=== PATIENT | female | born 1960 | race Caucasian/White ===

== ENCOUNTER 2016-08-12 17:22 | Emergency (ER) | payer BC, OTHER ==
--- NOTE | 2016-08-12 17:59 | UC ---
UC General HPI - HPI Summary HPI Summary: Patient placed a tampon at 6am. has not been able to retrieve it. no pain. - History of Current Complaint Chief Complaint: UCGU Stated Complaint: PERSONAL Time Seen by Provider: 08/12/16 17:32 Hx Obtained From: Patient Onset/Duration: Sudden Onset, Lasting Hours Timing: Constant Onset Severity: Mild Current Severity: Mild Pain Intensity: 0 - Allergy/Home Medications Allergies/Adverse Reactions: Allergies Allergy/AdvReac Type Severity Reaction Status Date / Time No Known Allergies Allergy Verified 08/12/16 17:25 Home Medications: Home Medications Aspirin EC Low Dose* [Ecotrin EC Low Dose*] 81 mg PO DAILY 08/12/16 [History Confirmed 08/12/16] Atorvastatin* [Lipitor*] 40 mg PO DAILY 08/12/16 [History Confirmed 08/12/16] Meloxicam(NF) [Mobic(NF)] 7.5 mg PO DAILY PRN 08/12/16 [History Confirmed ] metFORMIN* [Glucophage*] 500 mg PO BID 08/12/16 [History Confirmed 08/12/16] PMH/Surg Hx/FS Hx/Imm Hx Previously Healthy: Yes Endocrine History Of: Reports: Diabetes - Surgical History Surgical History: Yes Surgery Procedure, Year, and Place: D&C x3 - Family History Known Family History: Negative: Cardiac Disease, Hypertension - Social History Alcohol Use: Rare Substance Use Type: None Smoking Status (MU): Never Smoked Tobacco Review of Systems Constitutional: Negative Skin: Negative Eyes: Negative ENT: Negative Respiratory: Negative Cardiovascular: Negative Gastrointestinal: Negative Genitourinary: Other - FB Motor: Negative Neurovascular: Negative Musculoskeletal: Negative Neurological: Negative Psychological: Negative All Other Systems Reviewed And Are Negative: Yes Physical Exam Triage Information Reviewed: Yes Appearance: Well-Appearing, Well-Nourished, Pain Distress Vital Signs: Initial Vital Signs Temp 99.1 F 08/12/16 17:29 Pulse 68 08/12/16 17:29 Resp 16 08/12/16 17:29 BP 127/74 08/12/16 17:29 Pulse Ox 100 08/12/16 17:29 Eye Exam: Normal Eyes: Positive: Conjunctiva Clear ENT Exam: Normal ENT: Positive: Normal ENT inspection, Pharynx normal, TMs normal Dental Exam: Normal Neck exam: Normal Neck: Positive: Supple, Nontender, No Lymphadenopathy Respiratory Exam: Normal Respiratory: Positive: Chest non-tender, Lungs clear, Normal breath sounds Cardiovascular Exam: Normal Cardiovascular: Positive: RRR, No Murmur, Pulses Normal Abdominal Exam: Normal Abdomen Description: Positive: Nontender, No Organomegaly, Soft, Other: - pelvic exam revealed no FB, vaginal bleeding from monthly cycle. no unusal drainage or odor. patient was pain free during exam Bowel Sounds: Positive: Present Musculoskeletal Exam: Normal Musculoskeletal: Positive: Strength Intact, ROM Intact, No Edema Neurological Exam: Normal Neurological: Positive: Alert, Muscle Tone Normal Psychological Exam: Normal Skin Exam: Normal Course/Dx - Course Course Of Treatment: history obtained, exam performed, pelvic exam completed. no further treatment needed. - Differential Dx - Multi-Symptom Provider Diagnoses: normal menstration Discharge - Discharge Plan Condition: Stable Disposition: HOME Additional Instructions: During your exam, I did not find any tampon. everything looks normal at this time. i fyou develope any additional pain, unusal discharge, fever. follow up with your [employer].
[2016-08-12 18:09] VITALS: BP 127/74
== END 2016-08-12 18:19 | disposition home or self-care (01) ==
LOC: UCCORT 17:22
DX: Z03.89 Encounter for observation for other suspected diseases and conditions ruled out (principal); E11.9 Type 2 diabetes mellitus without complications; Z79.84 Long term (current) use of oral hypoglycemic drugs
CPT/HCPCS: 99212; G0463

== ENCOUNTER 2017-05-29 08:39 | Emergency (ER) | payer BC, OTHER ==
[2017-05-29 08:55] VITALS: BP 126/71
[2017-05-29] MEDS ORDERED: Ibuprofen TAB* 600 MG PO ONE (09:25)
--- NOTE | 2017-05-29 09:25 | UC ---
Skin Complaint HPI - HPI Summary HPI Summary: BOIL RIGHT UPPER EYELID X 3 DAYS + SWELLING, REDNESS , TENDER NO FEVER , NO CHILLS - History of Current Complaint Chief Complaint: UCSkin Time Seen by Provider: 05/29/17 09:17 Stated Complaint: RIGHT EYE COMPLAINT Hx Obtained From: Patient Hx Last Menstrual Period: 08/12/16 ?: No Onset/Duration: Gradual Onset, Lasting Days - 3, Still Present Timing: Constant Onset Severity: Moderate Current Severity: Moderate Location: Other - RIGHT UPPER EYELID Character: Swelling, Pain, Redness, Painful Aggravating Factor(s): Touch Alleviating Factor(s): Nothing Associated Signs & Symptoms: Positive: Tenderness. Negative: Fever, Chills - Allergy/Home Medications Allergies/Adverse Reactions: Allergies Allergy/AdvReac Type Severity Reaction Status Date / Time No Known Allergies Allergy Verified 05/29/17 08:48 Home Medications: Home Medications Fluticasone NASAL * [Flonase *] 2 spray BOTH NARES DAILY 05/29/17 [History Confirmed 05/29/17] Review of Systems Constitutional: Negative Eyes: Negative ENT: Negative Respiratory: Negative Cardiovascular: Negative Is Patient Immunocompromised?: No All Other Systems Reviewed And Are Negative: Yes PMH/Surg Hx/FS Hx/Imm Hx Endocrine History: Diabetes - Surgical History Surgical History: Yes Surgery Procedure, Year, and Place: D&C x3 - Family History Known Family History: Negative: Cardiac Disease, Hypertension - Social History Alcohol Use: Occasionally Substance Use Type: None Smoking Status (MU): Never Smoked Tobacco Physical Exam Triage Information Reviewed: Yes Appearance: Well-Appearing, No Pain Distress, Well-Nourished Vital Signs: Initial Vital Signs Temp 99.3 F 05/29/17 08:51 Pulse 62 05/29/17 08:51 Resp 14 05/29/17 08:51 BP 126/71 05/29/17 08:51 Pulse Ox 100 05/29/17 08:51 Vital Signs Reviewed: Yes Eyes: Positive: Conjunctiva Clear ENT: Positive: Normal ENT inspection, Hearing grossly normal, Pharynx normal Neck exam: Normal Neck: Positive: Supple, Nontender, No Lymphadenopathy Respiratory Exam: Normal Respiratory: Positive: Chest non-tender, Lungs clear, Normal breath sounds Cardiovascular Exam: Normal Cardiovascular: Positive: RRR, No Murmur, Pulses Normal Skin: Positive: Other - ABSCESS RIGHT UPPER EYELID, +ERYTHEMA, SWELLING, TENDER Course/Dx - Diagnoses Provider Diagnoses: ABSCESS RIGHT UPPER EYELID Discharge - Discharge Plan Condition: Stable Disposition: HOME Prescriptions: Cephalexin CAP* [Keflex CAP*] 500 mg PO TID #30 cap Patient Education Materials: Abscess (ED) Referrals: Yisel Sharp MD [Primary Care Provider] - 3 Days
== END 2017-05-29 09:35 | disposition home or self-care (01) ==
LOC: UCCORT 08:39
DX: H00.031 Abscess of right upper eyelid (principal)
CPT/HCPCS: 99212; A9270-GY; G0463

== ENCOUNTER 2017-05-31 13:38 | Emergency (ER) | payer BC ==
[2017-05-31 13:53] VITALS: BP 143/82
[2017-05-31] MEDS ORDERED: Lidocaine 2% PF * 5 ML VIAL INJ ONE (13:58)
--- NOTE | 2017-05-31 14:05 | UC ---
Skin Complaint HPI - HPI Summary HPI Summary: boil right upper eyelid x 7 days was seen 2 days ago , placed on Keflex 3 x per day , getting worse, larger, more painful no fever, no chills, no change in vision or eye pain - History of Current Complaint Chief Complaint: UCEye Time Seen by Provider: 05/31/17 13:44 Stated Complaint: SWOLLEN RT EYE Hx Obtained From: Patient Hx Last Menstrual Period: 08/12/16 Onset/Duration: Gradual Onset, Lasting Days - 7, Still Present, Worse Since - yesterday Timing: Constant Onset Severity: Moderate Current Severity: Severe Location: Discrete - right upper eyelid Character: Swelling, Pain, Redness, Raised, Painful Aggravating Factor(s): Touch Alleviating Factor(s): Nothing Associated Signs & Symptoms: Positive: Tenderness. Negative: Nausea, Vomiting, Drainage - Allergy/Home Medications Allergies/Adverse Reactions: Allergies Allergy/AdvReac Type Severity Reaction Status Date / Time No Known Allergies Allergy Verified 05/31/17 13:47 Review of Systems Constitutional: Negative Eyes: Negative ENT: Negative Respiratory: Negative Is Patient Immunocompromised?: No All Other Systems Reviewed And Are Negative: Yes PMH/Surg Hx/FS Hx/Imm Hx Endocrine History: Diabetes - Surgical History Surgical History: Yes Surgery Procedure, Year, and Place: D&C x3. Colonoscopy - Family History Known Family History: Negative: Cardiac Disease, Hypertension - Social History Alcohol Use: Occasionally Substance Use Type: None Smoking Status (MU): Never Smoked Tobacco - Immunization History Most Recent Influenza Vaccination: not yet 2017 Physical Exam Triage Information Reviewed: Yes Appearance: Well-Appearing, No Pain Distress, Well-Nourished Vital Signs: Initial Vital Signs Temp 99 F 05/31/17 13:48 Pulse 62 05/31/17 13:48 Resp 16 05/31/17 13:48 BP 143/82 05/31/17 13:48 Pulse Ox 100 05/31/17 13:48 Vital Signs Reviewed: Yes Eyes: Positive: Conjunctiva Clear, Other: - abscess right upper eyelid, + erythema, swollen, tender ENT: Positive: Normal ENT inspection, Hearing grossly normal, Pharynx normal Neck: Positive: Supple, Nontender, No Lymphadenopathy Respiratory: Positive: Chest non-tender, Lungs clear, Normal breath sounds Cardiovascular: Positive: RRR, No Murmur, Pulses Normal Course/Dx - Diagnoses Provider Diagnoses: abscess right upper eyelid Procedures - Incision and Drainage Site: abscess right upper eyelid Anesthesia: Local, Lidocaine - 2% x 3 cc Instrument(s): Scalpel - # 11 Discharge - Discharge Plan Condition: Stable Disposition: HOME Patient Education Materials: Abscess (ED) Referrals: YOSEPH Kevin [Primary Care Provider] - 3 Days Additional Instructions: will check culture the wound will change abx if needed follow up in 3 days for wound check follow up sooner if getting worse
--- NOTE | 2017-05-31 20:49 | ED ---
Progress - Progress Note Progress Note: please go to er. [facility] cx. Course/Dx - Diagnoses Provider Diagnoses: Orbital cellulitis
== END 2017-05-31 14:33 | disposition home or self-care (01) ==
LOC: UCCORT 13:38
DX: H00.031 Abscess of right upper eyelid (principal); B95.62 Methicillin resistant Staphylococcus aureus infection as the cause of diseases classified elsewhere; E11.9 Type 2 diabetes mellitus without complications
CPT/HCPCS: 10060; 67700; 87070; 87077; 87186; 87205; 87640; 87641; 99211; G0463